=== PATIENT | female | born 1990 | race Caucasian/White ===

== ENCOUNTER 2016-12-02 10:26 | Emergency (ER) | payer OTHER ==
[2016-12-02] MEDS ORDERED: MECLIZINE 12.5 MG TABLET PO ONE (11:13)
[2016-12-02] MEDS: MECLIZINE 12.5 MG TABLET PO STA ×2 (11:18→11:23)
== END 2016-12-02 12:42 | disposition home or self-care (01) ==
DX: R00.0 Tachycardia, unspecified (principal); R42 Dizziness and giddiness
CPT/HCPCS: 36415; 80053; 81003; 81025; 83690; 84443; 85025; 85379; 93005; 99283; 99284; A9270